=== PATIENT | female | born 1955 | race Caucasian/White ===

== ENCOUNTER 2017-12-17 16:09 | Outpatient (CLI) | payer BC | END 2017-12-17 16:10 | disposition home or self-care (01) | LOC: BICMAMMO 16:09 | PROVIDERS: ATTEND Family Medicine | DX: Z12.31 Encounter for screening mammogram for malignant neoplasm of breast (principal); R92.1 Mammographic calcification found on diagnostic imaging of breast | CPT/HCPCS: 77063; 77067 ==

== ENCOUNTER 2020-04-30 15:53 | Outpatient (CLI) | payer BC ==
--- NOTE | 2020-04-30 16:24 | MMO ---
Bilateral MAMMO Bilat Screen [facility]. CLINICAL HISTORY: Patient is 65 years old and is seen for screening. The patient has no family history of breast cancer. The patient has no personal history of cancer. VIEWS: The views performed were: bilateral craniocaudal with tomosynthesis and bilateral mediolateral oblique with tomosynthesis. FILMS COMPARED: The present examination has been compared to prior imaging studies performed at [facility] on 12/09/2013, 01/11/2015, 09/07/2016 and 12/17/2017. This study has been interpreted with the assistance of computer-aided detection. MAMMOGRAM FINDINGS: There are scattered fibroglandular densities. There are benign appearing and vascular calcifications seen in both breasts. Stable nodule left breast. There are no suspicious masses, suspicious calcifications, or new areas of architectural distortion. IMPRESSION: THERE IS NO MAMMOGRAPHIC EVIDENCE OF MALIGNANCY. A ROUTINE FOLLOW-UP MAMMOGRAM IN 1 YEAR IS RECOMMENDED. THE RESULTS OF THIS EXAM WERE SENT TO THE PATIENT. ACR BI-RADS Category 2 - Benign finding MAMMOGRAPHY NOTE: 1. A negative mammogram report should not delay a biopsy if a dominant of clinically suspicious mass is present. 2. Approximately 10% to 15% of breast cancers are not detected by mammography. 3. Adenosis and dense breasts may obscure an underlying neoplasm. Reported by: AVELINA MEIER MD Electonically Signed: [id number]
== END 2020-04-30 15:54 | disposition home or self-care (01) ==
LOC: BICMAMMO 15:53
PROVIDERS: ATTEND Family Medicine
DX: Z12.31 Encounter for screening mammogram for malignant neoplasm of breast (principal)
CPT/HCPCS: 77063; 77067

== ENCOUNTER 2022-11-26 10:45 | Observation (INO) | payer BC ==
[2022-11-26 11:23] LABS: #Eosinphils 0.3 thou/uL (0.0-0.7); #Lymphocytes 2.2 thou/uL (1.20-3.40); #Monocytes 0.8 thou/uL (0.11-0.59); #Neutrophils 3.4 thou/uL (1.40-6.50); %Basophils 0.7 % (0.0-1.0); %Eosinophils 3.8 % (0.0-10.0); %Lymphocytes 32.9 % (21.0-51.0); %Neutrophils 50.6 % (42.0-75.0); Mean Corpuscular HGB CONC 33.2 g/dL (32.0-36.0); Mean Corpuscular Hemoglobin 29.3 pg (27.0-31.0); Mean Corpuscular Volume 88.1 fl (78.0-98.0); Mean Platelet Volume 8.2 fL (7.4-10.4); Platelet Count 279 10x3/uL (130-400); RBC Distribution Width 13.4 % (11.5-14.5); Red Blood Cell (RBC) Count 4.09 mill/uL (4.20-5.40); White Blood Cell (WBC) Count 6.7 10x3/uL (4.8-10.8)
[2022-11-26 11:48] LABS: ALT (SGPT) 63 U/L (8-55); AST (SGOT) 55 U/L (5-34); Alkaline Phosphatase 111 U/L (40-110); Anion Gap 14 mmol/L (10-20); BUN (Urea Nitrogen) 20 mg/dL (9.8-20.1); Bilirubin, Total 0.5 mg/dL (0.2-1.2); CK (CPK) 105 U/L (29-168); Calc. Creatinine Clearance 0 mL/min (70-130); Calcium 9.6 mg/dL (7.8-10.44); Carbon Dioxide 22 mmol/L (23-31); Chloride 108 mmol/L (98-107); Estimated GFR 65; Globulin 2.8 g/dL (2.4-3.5); Glucose 88 mg/dL (80-115); Potassium 3.9 mmol/L (3.5-5.1); Protein, Total 6.8 g/dL (5.8-8.1); Sodium 140 mmol/L (136-145)
[2022-11-26 11:59] LABS: Bilirubin Negative (Negative); Blood, Urine Negative (Negative); Clarity Clear (Clear); Glucose, Urine (Dipstick) Normal (Negative); Ketone, Urine Negative (Negative); Leukocyte Negative Leu/uL (Negative); Nitrite Negative (Negative); Protein, Urine (Dipstick) Negative (Neg-Trace); Specific Gravity, Urine 1.006 (1.002-1.036); Urobilinogen Normal mg/dL (Less than 2); pH, Urine 6.5 (5.0-9.0)
[2022-11-26] MEDS ORDERED: hydrALAZINE 20 MG/ML VIAL ONE (12:14)
[2022-11-26] MEDS ORDERED: Aspirin Chewable 81 MG TAB ONE (12:14)
[2022-11-26] MEDS ORDERED: Furosemide 20 MG/2 ML VIAL ONE (12:14)
[2022-11-26] MEDS ORDERED: Senokot S 8.6-50 MG TAB PO PRN (12:28)
[2022-11-26] MEDS ORDERED: Nitroglycerin 2% Ointment 1 INCH/1 GM Packet ONE (12:30)
[2022-11-26] MEDS ORDERED: Ondansetron PF 4 MG/2 ML Vial IVP PRN (12:38)
[2022-11-26] MEDS ORDERED: Melatonin 3 MG TAB PO PRN (12:38)
[2022-11-26] MEDS ORDERED: Amlodipine 10 MG TAB PO SCH (12:45)
[2022-11-26] MEDS ORDERED: NIFEdipine XL 60 MG TAB PO SCH (13:45)
[2022-11-26] MEDS ORDERED: NIFEdipine XL 30 MG TAB ONE (13:56)
[2022-11-26 14:33] LABS: Troponin I Less than 0.010 ng/mL (< 0.028)
[2022-11-26] MEDS ORDERED: Lisinopril 10 MG TAB PO SCH (17:00)
[2022-11-26 17:14] VITALS: BMI 25.9
[2022-11-26 17:48] LABS: Troponin I Less than 0.010 ng/mL (< 0.028)
[2022-11-26] MEDS: Acetaminophen 325 MG TAB PO PRN (18:02)
[2022-11-26] MEDS ORDERED: hydrALAZINE 20 MG/ML VIAL SLOW IVP PRN (19:39)
[2022-11-27] MEDS: Acetaminophen 325 MG TAB PO PRN (04:41)
[2022-11-27 05:08] LABS: #Basophils 0.1 thou/uL (0.0-0.2); #Eosinphils 0.3 thou/uL (0.0-0.7); #Lymphocytes 1.7 thou/uL (1.20-3.40); #Monocytes 0.7 thou/uL (0.11-0.59); #Neutrophils 2.7 thou/uL (1.40-6.50); %Basophils 1.2 % (0.0-1.0); %Eosinophils 4.9 % (0.0-10.0); %Lymphocytes 31.4 % (21.0-51.0); %Monocytes 12.3 % (0.0-10.0); %Neutrophils 50.2 % (42.0-75.0); Hemoglobin 12.8 g/dL (12.0-16.0); Mean Corpuscular HGB CONC 34.8 g/dL (32.0-36.0); Mean Corpuscular Hemoglobin 30.6 pg (27.0-31.0); Mean Platelet Volume 8.6 fL (7.4-10.4); Platelet Count 286 10x3/uL (130-400); RBC Distribution Width 13.3 % (11.5-14.5); Red Blood Cell (RBC) Count 4.18 mill/uL (4.20-5.40); White Blood Cell (WBC) Count 5.3 10x3/uL (4.8-10.8)
[2022-11-27 05:57] LABS: ALT (SGPT) 51 U/L (8-55); AST (SGOT) 32 U/L (5-34); Albumin 3.7 g/dL (3.4-4.8); Alkaline Phosphatase 104 U/L (40-110); Anion Gap 16 mmol/L (10-20); BUN (Urea Nitrogen) 20 mg/dL (9.8-20.1); Bilirubin, Total 0.7 mg/dL (0.2-1.2); Calc. Creatinine Clearance 56 mL/min (70-130); Calcium 9.7 mg/dL (7.8-10.44); Carbon Dioxide 23 mmol/L (23-31); Chloride 105 mmol/L (98-107); Estimated GFR 59; Globulin 2.9 g/dL (2.4-3.5); Glucose 101 mg/dL (80-115); Potassium 3.7 mmol/L (3.5-5.1); Protein, Total 6.6 g/dL (5.8-8.1); Sodium 140 mmol/L (136-145)
[2022-11-27] MEDS ORDERED: Levothyroxine Sodium 75 MCG TAB PO SCH (06:00)
[2022-11-27] MEDS ORDERED: NIFEdipine XL 60 MG TAB PO SCH ×2 (09:00)
[2022-11-27] MEDS ORDERED: Lisinopril 10 MG TAB PO SCH ×2 (09:00)
[2022-11-27] MEDS ORDERED: Amlodipine 10 MG TAB PO SCH (09:00)
[2022-11-27] MEDS ORDERED: SUMAtriptan Succinate 25 MG TAB PO SCH (11:15)
[2022-11-27] MEDS ORDERED: Lisinopril 20 MG TAB PO SCH (14:45)
[2022-11-27 15:39] VITALS: TEMP 98.2
[2022-11-27 19:57] VITALS: BP 139/65
[2022-11-28] MEDS ORDERED: Lisinopril 20 MG TAB PO SCH (09:00)
[2022-12-01 15:15] LABS: Dopamine 24H Ur 191 ug/24 hr (0-510); Dopamine,Ur 98 ug/L (Undefined); Epinephrine 24H Ur 2 ug/24 hr (0-20); Epinephrine,Ur 1 ug/L (Undefined); Norephinephrine 24H U 37 ug/24 hr (0-135); Norephinephrine,Ur 19 ug/L (Undefined)
== END 2022-11-27 20:40 | disposition home or self-care (01) ==
LOC: ERS 10:45 → ERHOLD 12:53 → 2SW 16:53
PROVIDERS: ADMIT Internal Medicine; ATTEND Internal Medicine
DX: I16.0 Hypertensive urgency (principal); I11.9 Hypertensive heart disease without heart failure; E03.9 Hypothyroidism, unspecified; E78.00 Pure hypercholesterolemia, unspecified; I08.8 Other rheumatic multiple valve diseases; Z79.890 Hormone replacement therapy; Z88.5 Allergy status to narcotic agent
CPT/HCPCS: 36415; 70450; 71045; 76705; 80053; 81003; 82384; 82550; 83835; 83880; 84443; 84484; 85025; 93005; 93306; 94760; 96372; 96374; 96375; G0378; J0360; J1650; J1940

== ENCOUNTER 2024-02-06 09:16 | Outpatient (CLI) | payer MEDICARE | END 2024-02-06 09:17 | disposition home or self-care (01) | LOC: BICMAMMO 09:16 | PROVIDERS: ATTEND Family Medicine | DX: Z12.31 Encounter for screening mammogram for malignant neoplasm of breast (principal); Z13.820 Encounter for screening for osteoporosis; M81.0 Age-related osteoporosis without current pathological fracture; M85.851 Other specified disorders of bone density and structure, right thigh; M85.852 Other specified disorders of bone density and structure, left thigh; Z78.0 Asymptomatic menopausal state | CPT/HCPCS: 77063; 77067; 77080 ==

== ENCOUNTER 2025-07-03 16:01 | Outpatient (CLI) | payer MEDICARE | END 2025-07-03 16:02 | disposition home or self-care (01) | LOC: BICRAD 16:01 | PROVIDERS: ATTEND Family Medicine | DX: R07.89 Other chest pain (principal) | CPT/HCPCS: 71046 ==